=== PATIENT | female | born 1975 | race African-American/Black ===

== ENCOUNTER 2022-07-26 15:16 | Emergency (ER) | payer MEDICAID ==
[~2022-07-26] VITALS: Ht 162.6 cm; Wt 81.0 kg
[2022-07-26] MEDS ORDERED: ACETAMINOPHEN 325MG TABLET PO ONE (20:30)
[2022-07-26] MEDS ORDERED: IBUPROFEN 400MG TABLET PO ONE (20:30)
[2022-07-26 21:30] VITALS: BP 124/78
[2022-07-26] MEDS ORDERED: METH-653 MT (22:35)
== END 2022-07-26 21:30 | disposition home or self-care (01) ==
LOC: ER 15:16
DX: M25.512 Pain in left shoulder (principal); J45.909 Unspecified asthma, uncomplicated; I49.9 Cardiac arrhythmia, unspecified
CPT/HCPCS: 73030; 81025; 93005; 99283

== ENCOUNTER 2022-09-19 02:08 | Emergency (ER) | payer MEDICAID ==
[~2022-09-19] VITALS: Ht 157.5 cm; Wt 75.0 kg
[~2022-09-19 02:08] MED LIST: METH-653 MT
[2022-09-19] MEDS ORDERED: MORPHINE SULFATE 4 MG/ML CPJ (NOT FOR IM USE) IV STA (03:24)
[2022-09-19] MEDS ORDERED: ONDANSETRON HCL 4MG/2ML INJ IV STA (03:24)
[2022-09-19] MEDS ORDERED: SODIUM CHLORIDE 0.9% 1,000 ML IV ONE (03:30)
[2022-09-19 04:48] LABS: HCG SCREEN NEGATIVE
[2022-09-19 05:15] LABS: CHLORIDE 102 mEq/L (98-107)
[2022-09-19 05:37] LABS: BASOPHILS % 0.4 % (0.0-2.0); EOSINOPHILS % 0.3 % (0.0-5.0); HEMATOCRIT. 35.5 % (36.0-48.0); HEMOGLOBIN. 11.1 g/dL (12.0-16.0); LYMPHOCYTES % 9.6 % (20.0-50.0); MEAN CORPUSCULAR HEMOGLOBIN 22.2 pg (28.0-32.0); MEAN CORPUSCULAR VOLUME 70.8 fL (81.0-99.0); MONOCYTES % 2.9 % (2.0-8.0); NEUTROPHILS % 86.8 % (40.0-76.0); PLATELET 331 x1000/uL (130-400); RED BLOOD CELL COUNT 5.02 mill/uL (4.2-5.4); RED CELL DISTRIBUTION WIDTH 14.7 % (11.6-14.6)
[2022-09-19] MEDS ORDERED: SODIUM CHLORIDE 0.9% 1000ML BAG (SEPSIS BOLUS) IV ONE (06:45)
[2022-09-19] MEDS ORDERED: VANCOMYCIN 1G PREMIX 200 ML IV ONE (06:45)
[2022-09-19] MEDS ORDERED: PIPERACILLIN/TAZ 3.375G PREMIX 50 ML IV ONE (06:45)
[2022-09-19 06:59] LABS: CLARITY URINE CLEAR (CLEAR); COLOR URINE STRAW (YELLOW); PH URINE 6.5 (4.5-8.0)
[2022-09-19 07:00] LABS: KETONES URINE NEGATIVE (NEGATIVE); NITRITE URINE NEGATIVE (NEGATIVE); OCCULT BLOOD URINE 3+ (NEGATIVE); PROTEIN URINE TRACE (NEGATIVE)
[2022-09-19 07:01] LABS: LEUKOCYTE ESTERASE URINE NEGATIVE (NEGATIVE); UROBILINOGEN URINE 0.2 E.U./dL (0.2-1.0)
[2022-09-19 08:00] VITALS: BP 150/81
[2022-09-19] MEDS ORDERED: T3 PO (10:03)
[2022-09-19] MEDS ORDERED: TAMS-11 PO (10:03)
== END 2022-09-19 10:33 | disposition home or self-care (01) ==
LOC: ER 02:27 → CANBEDREQ 09:59 → ER 10:33
DX: N20.0 Calculus of kidney (principal); N13.4 Hydroureter; R03.0 Elevated blood-pressure reading, without diagnosis of hypertension
CPT/HCPCS: 36415; 70450; 74176; 80053; 81003; 83605; 83690; 84703; 85025; 96361; 96365; 96367; 96375; 99285; J2270; J2405; J2543; J3370; J7030; Z7610